=== PATIENT | female | born 1975 | race Caucasian/White ===

== ENCOUNTER 2019-03-15 08:29 | Emergency (ER) | payer MEDICAID, SELFPAY ==
[2019-03-15 08:34] VITALS: BP 149/101; PULSE 85; TEMP 36.7; O2SAT 97
--- NOTE | 2019-03-15 08:36 | ED.GENADUL_ITS ---
Discharge Plan Disposition Patient Disposition: HOME Condition: Good Discharge Details Chief Complaint: AnimalBite Clinical Impression: Dog bite, Laceration, Tingling in extremities Primary Care Provider: Blanca Lehman ED Provider: Marques Artis Home Meds and New Rx's Prescriptions: New amoxicillin-pot clavulanate [Augmentin] 875-125 mg tablet 1 tab PO BID Qty: 20 RF: 0 No Action venlafaxine 37.5 mg Tablet 37.5 mg PO DAILY RF: 0 Discharge Instructions Instructions: Animal Bite (ED), Laceration (ED) Additional Instructions: You have been bitten by a dog. Because of this there is a high risk of infection. Please keep the area dry for the next 24 to 48 hours, after this wash gently twice daily with warm soap and water. Take the antibiotic as directed. Continue to apply antibiotic ointment. Do not directly soak the area. Watch for any signs of infection and return if any increasing redness, swelling, pain, drainage. If you notice any worsening of your symptoms, or any new symptoms such as vomiting, diarrhea, fever, chills, shortness of breath, chest pain, numbness, weakness, or fainting , please return immediately to the emergency department for reevaluation. Please follow up with your primary care provider as soon as possible for reassessment and reevaluation. As always, it was a pleasure participating in your medical care today. Referrals: Blanca Lehman [Primary Care Provider] - Medical Decision Making This is a very pleasant 43-year-old female who presents for evaluation of dog bite on her left nondominant arm. To lacerations are present over the medial aspect of the forearm. Distances are 1 and 2 cm in length, linear. Dog's vaccinations are up-to-date. Tetanus is not and will be updated here. Patient does have mild decrease in sensation over the fifth digit, concerning for a decrease in two-point discrimination suspected nerve injury. Strength is otherwise normal. Normal movement, brisk capillary refill. No evidence of significant vascular compromise. 2 simple interrupted sutures were loosely placed in each laceration for wound edge approximation. Patient tolerated the procedure well, we have given her first dose of Augmentin here and will give a prescription for home use. Due to the decrease in sensation and two-point discrimination we will give an orthopedic referral for evaluation of potential nerve repair. Recommended vitamin B12 complex, we discussed customary discharge instructions for sutures post dog bite. Discussed red flags which to return. I have extensively reviewed the treatment plan and discharge instructions with the patient and their family. I have addressed all patient concerns at this time. The patient and family was made aware of what symptoms to monitor for that would warrant a return to the emergency department. Discussed the plan with the patient and family, they demonstrate verbal understanding and agreement with our assessment and plan at this time. Procedure: Suture Patient was positioned appropriately, 7cc lidocaine with epinephrine was used as a local anesthetic. Copious amounts of normal saline and chlorhexidine were used for irrigation through high-pressure irrigation. Patient was scrubbed vigorously with chlorhexidine scrub. Patient was sterile draped with wound exposed. 4-0 of Ethilon was used for 2 simple interrupted sutures, one at each site were placed with good approximation. Wound dressed with bacitracin and sterile gauze. Estimated Blood Loss: 1ml The patient tolerated the procedure well and there were no complications. HPI General Date/Time Provider Initiated Documentation: 03/15/19 08:32 . HPI Narrative: This is a pleasant 43-year-old female with no significant past medical history who presents today for evaluation of a dog bite. 1 hour prior to arrival the patient was bitten by a neighbors vaccinated dog on the left forearm. She is right-hand dominant. Aside for the pain at the site the patient does admit to complaint of tingling in her pinky finger on the left arm distal to the laceration. Tetanus is not up-to-date. She denies any proximal arm pain, nausea, vomiting, or diarrhea. She denies any other complaints modifying factors. Related Data Home Medications Medication Instructions Recorded Confirmed amoxicillin-pot clavulanate 1 tab PO BID #20 tab 03/15/19 [Augmentin] venlafaxine 37.5 mg PO DAILY 03/15/19 03/15/19 Previous Rx's Medication Instructions Recorded amoxicillin-pot clavulanate 1 tab PO BID #20 tab 03/15/19 [Augmentin] Allergies Allergy/AdvReac Type Severity Reaction Status Date / Time No Known Allergies Allergy Unverified 09/24/15 18:52 General Stated Complaint: AnimalBite BETH: 3 Review of Systems Review of Systems All systems reviewed & are unremarkable except as noted in HPI and below PFSH Social History Smoking/Tobacco Use Status: Current-Occasional Tobacco Type: cigarettes Drug use: Never Substance use type: does not use Do you feel safe at home: Yes Do you feel safe in your relationship?: Yes Exam Narrative Exam Narrative: 1.Const: Well-nourished, Well-developed, appearing stated age 2.Eyes: PERRL, no conjunctival injection, and symmetrical lids. 3.ENT: Atraumatic external nose and ears. Moist MM. Neck: Symmetric, trachea midline, No thyromegaly. 4.CVS: +S1/S2, No murmurs or gallops. Peripheral pulses 2+ and equal in all extremities. Brisk capillary refill in all extremities. 5.RESP: Unlabored respiratory effort. Clear to auscultation bilaterally. No wheezes rales or rhonchi 6.GI: Soft, Nontender/Nondistended, No hepatosplenomegaly. No guarding or rebound. 7.MSK: Normocephalic, No cyanosis or clubbing, Normal movement of all extremities. Symmetrically palpable radial and ulnar pulses. Capillary refill less than 2 seconds to all digits. Left hand: Intact sensation to light touch of the radial, median and ulnar nerves demonstrated by testing in the dorsal web space of the thumb, the distal palmar aspect of the index finger, and the lateral surface of the fifth finger. 2 point discrimination intact to 5mm (up to 6mm can be normal in digits 3-5) of discrimination for all digits except for the fifth digit. Notable decrease in two-point discrimination for that finger. 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 Intact recurrent median nerve as demonstrated by ability to move thumb fully through opposition, abduction and flexion. No snuffbox tenderness. 8.Skin: 2 lacerations over the left forearm, both are located on the medial aspect of the mid forearm. Proximal laceration is 2 cm, distal laceration is 1 cm. Both are linear. No evidence of involvement of deep structures. No tendon involvement 9.Neuro: cross enterprise integrator II-XII grossly intact. Sensation grossly intact, no focal neurologic deficits. 10.Psych: (AAO) x3. Appropriate mood and affect Course Vital Signs Temperature 36.7 C 03/15/19 08:34 Pulse 85 08/07/19 08:34 Blood Pressure 149/101 H 03/15/19 08:34 Pulse Oximetry 97 03/15/19 08:34 Temperature 36.7 C 03/15/19 08:34 Temperature Source Temporal Artery Scan 03/15/19 08:34 Pulse 85 03/15/19 08:34 Respiratory Effort Non-Labored 03/15/19 08:35 Blood Pressure 149/101 H 03/15/19 08:34 Blood Pressure Position Sitting 03/15/19 08:34 Pulse Oximetry 97 03/15/19 08:34 Oxygen Delivery Method Room Air 03/15/19 08:34 Oxygen Flow Rate 0 03/15/19 08:34 Pain Level 3 03/15/19 08:34 Procedures Laceration Laceration 1: Site: upper extremity Side (If applicable): left Size (cm): 1 Description: linear Depth: simple, single layer Local Anesthetic: Lidocaine 1% and with Epi Amount of anesthesia used (mL): 3 Pre-repair: wound explored, irrigated extensively and deep structures intact Skin layer closed with: nylon Size (cm): 4-0 Number of sutures: 1 Technique: simple, interrupted Laceration 2: Site: upper extremity Side (If applicable): left Size (cm): 2 Description: linear Depth: simple, single layer Amount of anesthesia used (mL): 3 Pre-repair: wound explored and irrigated extensively Skin layer closed with: nylon Size (cm): 4-0 Number of sutures: 1 Technique: simple, interrupted
[2019-03-15] MEDS: Ibuprofen 800 MG TAB PO (09:05)
[2019-03-15] MEDS: Amoxicillin 875/Clav. 125 TAB PO (09:05)
--- NOTE | 2019-03-15 09:14 | NUR.NOTE ---
Nursing Note: Spoke with Lizet Pichardo [facility] Officer. Faxed the animal bite report to her. Glory Marie. Lizet Pichardo, home [phone] work [phone] work fax [phone] [facility] Clerk [phone] [facility] Clerk fax [phone]
== END 2019-03-15 09:14 | disposition home or self-care (01) ==
LOC: ER 09:41
PROVIDERS: Emergency Provider Student in an Organized Health Care Education/Training Program; PCP Physician Assistant Medical
DX: S51.852A Open bite of left forearm, initial encounter (principal); R20.2 Paresthesia of skin; W54.0XXA Bitten by dog, initial encounter
CPT/HCPCS: 12002; 90471

== ENCOUNTER → 2021-10-07 01:19 | Outpatient (CLI) | payer MEDICAID, SELFPAY | PROVIDERS: PCP Physician Assistant Medical; Visit Provider Physician Assistant Medical ==

== ENCOUNTER → 2021-11-17 01:21 | Outpatient (CLI) | payer MEDICAID, SELFPAY | PROVIDERS: PCP Physician Assistant Medical; Visit Provider Physician Assistant Medical ==